=== PATIENT | male | born 1960 | race Caucasian/White ===

== ENCOUNTER 2017-06-23 21:06 | Emergency (ER) | payer OTHER ==
[2017-06-23 21:22] VITALS: BP 130/80; PULSE 81; RESP 14; TEMP 98.7; O2SAT 98
[2017-06-23] MEDS ORDERED: DiphenhydrAMINE 50 mg/ml Inj IM STA (21:57)
[2017-06-23] MEDS ORDERED: DiphenhydrAMINE 50 mg/ml Inj ONE (22:08)
--- NOTE | 2017-06-23 22:22 | C.PDOC ---
History Of Present Illness 57 year old male who presents to the ER with a complaint of a itchy rash after cutting some leaves and exposing himself to poison danielle 4 days ago. Patient states he has been using calamine lotion; however, states today it has become increasingly irritated which prompted visit. Denies fever, chills, or SOB. Time Seen by Provider: 06/23/17 21:28 Chief Complaint (Nursing): Abnormal Skin Integrity History Per: Patient History/Exam Limitations: no limitations Onset/Duration Of Symptoms: Days Current Symptoms Are (Timing): Still Present Quality Of Symptoms: Itching Recent travel outside of the [place]: No Past Medical History Reviewed: Historical Data, Nursing Documentation, Vital Signs Vital Signs: Last Vital Signs Temp 98.7 F 06/23/17 21:20 Pulse 81 06/23/17 21:20 Resp 14 06/23/17 21:20 BP 130/80 06/23/17 21:20 Pulse Ox 98 06/24/17 02:49 - Medical History PMH: HTN Surgical History: No Surg Hx Family History: States: Unknown Family Hx - Social History Hx Tobacco Use: No Hx Alcohol Use: No Hx Substance Use: No - Immunization History Hx Tetanus Toxoid Vaccination: No Hx Influenza Vaccination: No Hx Pneumococcal Vaccination: No Review Of Systems Constitutional: Negative for: Fever, Chills ENT: Negative for: Mouth Swelling, Throat Swelling Respiratory: Negative for: Shortness of Breath Skin: Positive for: Rash Physical Exam - Physical Exam Appears: Non-toxic Skin: Warm, Dry, Rash (Diffuse scattered crusty vesicular lesions at different stages consistent with poison danielle to lower and upper extremities) Head: Atraumatic, Normacephalic Eye(s): bilateral: Normal Inspection Oral Mucosa: Moist Chest: Symmetrical, No Tenderness Cardiovascular: Rhythm Regular, No Murmur Respiratory: Normal Breath Sounds, No Rales, No Rhonchi, No Wheezing Gastrointestinal/Abdominal: Soft, No Tenderness Extremity: Normal ROM (x4), No Swelling Neurological/Psych: Oriented x3, Normal Speech, Normal Cognition ED Course And Treatment O2 Sat by Pulse Oximetry: 98 (Room air) Pulse Ox Interpretation: Normal Progress Note: Benadryl and prednisone administered. Reassessment Condition: Improved (Pt reports some improvemnent of the itching after benadryl IM. Pt in NAD, advised antihistamines, topical steroids and PMD or clinic follow up) Disposition Counseled Patient/Family Regarding: Diagnosis, Need For Followup, Rx Given - Disposition Disposition: HOME/ ROUTINE Disposition Time: 22:16 Condition: STABLE Additional Instructions: Take meds as directed take benadryl at night if itchy Return to ER if worse Prescriptions: Cetirizine HCl [Zyrtec] 10 mg PO DAILY #20 capsule Hydrocortisone 1% Cream [Cortizone 1% Cream] 1 appl TP BID #60 g Instructions: Poison Danielle (ED) Forms: [employer] (Italian) Print Language: MACEDONIAN - Clinical Impression Clinical Impression: Contact dermatitis due to poison danielle - Scribe Statement The provider has reviewed the documentation as recorded by the Bebaibjesse Muñoz All medical record entries made by the Lala were at my direction and personally dictated by me. I have reviewed the chart and agree that the record accurately reflects my personal performance of the history, physical exam, medical decision making, and the department course for this patient. I have also personally directed, reviewed, and agree with the discharge instructions and disposition.
== END 2017-06-23 22:41 | disposition home or self-care (01) ==
LOC: C.ER 21:06
DX: L23.7 Allergic contact dermatitis due to plants, except food (principal)
CPT/HCPCS: 96372; 99283; J1200